=== PATIENT | male | born 1975 | race Caucasian/White ===

== ENCOUNTER 2016-07-21 07:38 | Emergency (ER) | payer OTHER ==
[~2016-07-21] VITALS: Ht 172.7 cm; Wt 69.0 kg
[~2016-07-21 07:38] MED LIST: BACT800T5 PO; LORA-392 PO
[2016-07-21 07:42] VITALS: BP 126/90; PULSE 102; RESP 18; TEMP 97.5; O2SAT 100
[2016-07-21 07:57] VITALS: RESP 16
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
--- NOTE | 2016-07-21 08:34 | RADHPO ---
EXAM DATE/TIME: 07/21/2016 08:05 [facility] COMPARISON: No previous studies available for comparison. INDICATIONS : Low back pain; fall today. MEDICAL HISTORY : None. SURGICAL HISTORY : None. ENCOUNTER: Initial ACUITY: 1 day PAIN SCORE: 8/10 LOCATION: Lumbar spine. FINDINGS: There are five non-rib bearing vertebral bodies. The vertebral bodies are in normal alignment withou t evidence of subluxation or scoliosis. The disc spaces are maintained. Minimal degenerative change s and scoliosis of the lumbar spine are noted. The posterior elements are intact without evidence of spondylolysis. The pedicles are intact. Bony mineralization is normal. No fracture is identified. CONCLUSION: No acute disease. Minimal degenerative changes and scoliosis of the lumbar spine. Alfonso Martini MD on July 21, 2016 at 8:31 Board Certified Radiologist. This report was verified electronically.
--- NOTE | 2016-07-21 08:36 | RADHPO ---
EXAM DATE/TIME: 07/21/2016 08:06 [facility] COMPARISON: KNEE LEFT COMPLETE (4VWS), February 25, 2016, 1:52. INDICATIONS : Left knee pain; fall today. MEDICAL HISTORY : None. SURGICAL HISTORY : None. ENCOUNTER: Initial ACUITY: 1 day PAIN SCORE: 5/10 LOCATION: Left medial knee. FINDINGS: Four view examination of the left knee demonstrates no evidence of fracture or dislocation. Bony min eralization is normal. The articular surfaces are intact. The suprapatellar soft tissues have a nor mal configuration. CONCLUSION: No acute disease. Alfonso Martini MD on July 21, 2016 at 8:34 Board Certified Radiologist. This report was verified electronically.
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
[2016-07-21] MEDS ORDERED: TYLE325T PO (09:04)
[2016-07-21] MEDS ORDERED: ZOFR4TAB3 SL (09:04)
== END 2016-07-21 09:12 | disposition home or self-care (01) ==
LOC: PHED 07:38
DX: S06.0X1A Concussion with loss of consciousness of 30 minutes or less, initial encounter (principal); F10.10 Alcohol abuse, uncomplicated; F17.210 Nicotine dependence, cigarettes, uncomplicated; F12.10 Cannabis abuse, uncomplicated; Y04.8XXA Assault by other bodily force, initial encounter; Y93.9 Activity, unspecified; Y92.9 Unspecified place or not applicable; Y99.9 Unspecified external cause status; Y90.9 Presence of alcohol in blood, level not specified
CPT/HCPCS: 70450; 72110; 73564

== ENCOUNTER 2016-07-23 16:14 | Emergency (ER) | payer SELFPAY ==
[2016-07-23] VITALS (7 sets, daily range): BP systolic 119–155; BP diastolic 71–95; PULSE 89–139; RESP 17–18; TEMP 98.5; O2SAT 95–99
[~2016-07-23] VITALS: Ht 172.7 cm; Wt 68.0 kg
[~2016-07-23 16:14] MED LIST changes: -BACT800T5 PO; -LORA-392 PO; +TYLE325T PO; +ZOFR4TAB3 SL
[2016-07-23] MEDS ORDERED: SODIUM CHLOR 0.9% 1000 ML INJ 1,000 ML IV SCH (16:32)
--- NOTE | 2016-07-23 16:36 | PD ---
HPI Chief Complaint: Alcohol/Drug Intoxication Time Seen by Provider: 16:30 Travel History International Travel<30 days: No Contact w/Intl Traveler<30days: No Traveled to known affect area: No History of Present Illness HPI 40-year-old male with history of alcoholism, here for evaluation of possible alcohol withdrawal in requesting detox. Patient drinks alcohol daily drinking vanilla extract, mouthwash, and vodka. He states his last treatment was between 8 and 9 PM last night. States that he is feeling lightheaded and shaky. He is afraid of going into DTs. He denies suicidal ideation and states that he is here because he wants to live. He knows that he needs to go to [facility] for detox, however he does not have the means to get there. He denies illicit drug use. PFSH Past Medical History Hx Anticoagulant Therapy: No Autoimmune Disease: No Anxiety: Yes Depression: Yes (DX IN 2009) Heart Rhythm Problems: Yes Cancer: No Cardiovascular Problems: No Chemotherapy: No Chest Pain: Yes (WHEN DETOXING) Cerebrovascular Accident: No Diabetes: No Diminished Hearing: No Endocrine: No Gastrointestinal Disorders: Yes GERD: Yes Genitourinary: No Hiatal Hernia: Yes Hypertension: Yes (DETOXING ONLY) Immune Disorder: No Implanted Vascular Access Dvce: No Musculoskeletal: No Neurologic: Yes Psychiatric: Yes Reproductive: No Respiratory: No Immunizations Current: Yes Radiation Therapy: No Seizures: Yes (WITHDRAWL) Ulcer: Yes (GASTRIC) Past Surgical History Tonsillectomy: Yes Other Surgery: Yes (Hernia as child) Social History Alcohol Use: Yes (daily- vodka 1 pint every other day) Tobacco Use: Yes (1/2 PPD) Substance Use: Yes (MARIJUANA) Allergies-Medications (Allergen,Severity, Reaction): Coded Allergies: No Known Allergies (Unverified , 07/23/16) Reported Meds & Prescriptions Reported Meds & Active Scripts Active No Active Prescriptions or Reported Medications Review of Systems Except as stated in HPI: all other systems reviewed are Neg Physical Exam Narrative GENERAL: Well-developed, well-nourished, tearful, awake, alert, no acute distress. SKIN: Focused skin assessment warm/dry. HEAD: Atraumatic. Normocephalic. EYES: Pupils equal and round. No scleral icterus. No injection or drainage. ENT: Mucous membranes pink and moist. No tongue fasciculations. NECK: Trachea midline. No JVD. CARDIOVASCULAR: Tachycardic, regular. RESPIRATORY: No accessory muscle use. Clear to auscultation. Breath sounds equal bilaterally. GASTROINTESTINAL: Abdomen soft, non-tender, nondistended. MUSCULOSKELETAL: No obvious deformities. No clubbing. No cyanosis. No edema. NEUROLOGICAL: Awake and alert. No obvious cranial nerve deficits. Motor grossly within normal limits. Normal speech. PSYCHIATRIC: Appropriate mood and affect; insight and judgment normal. Data Data Last Documented VS Vital Signs Date Time Temp Pulse Resp B/P Pulse Ox O2 Delivery O2 Flow Rate FiO2 07/23/16 21:24 108 18 135/77 96 Room Air 07/23/16 16:16 98.5 Orders Complete Blood Count With Diff (07/23/16 16:32) Comprehensive Metabolic Panel (07/23/16 16:32) Iv Access Insert/Monitor (07/23/16 16:32) Ecg Monitoring (07/23/16 16:32) Oximetry (07/23/16 16:32) Sodium Chlor 0.9% 1000 Ml Inj (Ns 1000 M (07/23/16 16:32) Sodium Chloride 0.9% Flush (Ns Flush) (07/23/16 16:45) Alcohol (Ethanol) (07/23/16 16:32) Chlordiazepoxide (Librium) (07/23/16 16:45) Sodium Chlor 0.9% 1000 Ml Inj (Ns 1000 M (07/23/16 17:45) Labs Laboratory Tests Test 07/23/16 16:41 White Blood Count 6.1 TH/MM3 Red Blood Count 4.81 MIL/MM3 Hemoglobin 15.3 GM/DL Hematocrit 45.0 % Mean Corpuscular Volume 93.7 FL Mean Corpuscular Hemoglobin 31.8 PG Mean Corpuscular Hemoglobin 34.0 % Concent Red Cell Distribution Width 14.7 % Platelet Count 187 TH/MM3 Mean Platelet Volume 7.8 FL Neutrophils (%) (Auto) 70.8 % Lymphocytes (%) (Auto) 21.9 % Monocytes (%) (Auto) 5.9 % Eosinophils (%) (Auto) 0.5 % Basophils (%) (Auto) 0.9 % Neutrophils # (Auto) 4.3 TH/MM3 Lymphocytes # (Auto) 1.3 TH/MM3 Monocytes # (Auto) 0.4 TH/MM3 Eosinophils # (Auto) 0.0 TH/MM3 Basophils # (Auto) 0.1 TH/MM3 CBC Comment DIFF FINAL Differential Comment Sodium Level 140 MEQ/L Potassium Level 3.5 MEQ/L Chloride Level 100 MEQ/L Carbon Dioxide Level 24.4 MEQ/L Anion Gap 16 MEQ/L Blood Urea Nitrogen 10 MG/DL Creatinine 1.00 MG/DL Estimat Glomerular Filtration 83 ML/MIN Rate Random Glucose 182 MG/DL Calcium Level 8.7 MG/DL Total Bilirubin 0.4 MG/DL Aspartate Amino Transf 204 U/L (AST/SGOT) Alanine Aminotransferase 141 U/L (ALT/SGPT) Alkaline Phosphatase 153 U/L Total Protein 7.3 GM/DL Albumin 3.7 GM/DL Ethyl Alcohol Level 340 MG/DL [facility] Medical Decision Making Medical Screen Exam Complete: Yes Emergency Medical Condition: Yes Medical Record Reviewed: Yes Differential Diagnosis Alcohol intoxication versus alcohol withdrawal Narrative Course Initial vital signs show heart rate of 139 which improved to less than 100 after 2 L of normal saline IV. Blood pressure is 143/95, pulse ox 99% on room air, oral temp of 98.5F. CBC is unremarkable. CMP is remarkable for AST 24, ALT 141, alkaline phosphatase 153 which is all likely secondary to alcoholism. Otherwise CMP is unremarkable. Alcohol level is 340. Patient was made aware of all findings. He is resting comfortably. He now tells me that his last drink was this morning, not last night. There are no beds available currently at [facility] to transfer him to. Clinically he is not displaying any signs of alcohol withdrawal. There is no tremulousness. No tongue fasciculations. He is slightly tachycardic, however this improved after receiving normal saline IV. He will be allowed to sleep off his intoxication in the emergency department. Diagnosis Primary Impression: Alcohol intoxication Qualified Code: F10.120 - Alcohol intoxication, uncomplicated Referrals: [facility] 1 day Scripts No Active Prescriptions or Reported Meds Disposition: 01 DISCHARGE HOME Condition: Stable Eliel Zuniga MD Jul 23, 2016 16:36
[2016-07-23] MEDS ORDERED: SODIUM CHLORIDE 0.9% FLUSH 10 ML FLUSH IV FLUSH PRN (16:45)
[2016-07-23 16:53] LABS: AUTOMATED NEUTROPHIL # 4.3 TH/MM3 (1.8-7.7); BASOPHIL # 0.1 TH/MM3 (0-0.2); BASOPHIL % 0.9 % (0.0-2.0); EOSINOPHIL % 0.5 % (0.0-4.0); HEMO FLAGS DIFF FINAL; LYMPH % 21.9 % (9.0-44.0); LYMPHOCYTE # 1.3 TH/MM3 (1.0-4.8); MEAN CELL VOLUME 93.7 FL (80.0-100.0); MEAN CORPUSCULAR HEMOGLOBIN 31.8 PG (27.0-34.0); MONO % 5.9 % (0.0-8.0); NEUT % 70.8 % (16.0-70.0); PLATELET COUNT 187 TH/MM3 (150-450); RED BLOOD COUNT 4.81 MIL/MM3 (4.50-5.90); RED CELL DISTRIBUTION WIDTH 14.7 % (11.6-17.2); WHITE BLOOD COUNT 6.1 TH/MM3 (4.0-11.0)
[2016-07-23 17:05] LABS: CHLORIDE 100 MEQ/L (98-107); POTASSIUM 3.5 MEQ/L (3.5-5.1); SODIUM (NA) 140 MEQ/L (136-145)
[2016-07-23 17:09] LABS: ANION GAP 16 MEQ/L (5-15); BICARBONATE 24.4 MEQ/L (21.0-32.0); BLOOD UREA NITROGEN 10 MG/DL (7-18)
[2016-07-23 17:12] LABS: ALT (GPT) 141 U/L (12-78); AST (GOT) 204 U/L (15-37); GLOMERULAR FILTRATION RATE 83 ML/MIN (>89)
[2016-07-23 17:13] LABS: TOTAL BILIRUBIN ADULT 0.4 MG/DL (0.2-1.0)
[2016-07-23 17:15] LABS: ALKALINE PHOSPHATASE 153 U/L (45-117)
[2016-07-23] MEDS ORDERED: SODIUM CHLOR 0.9% 1000 ML INJ 1,000 ML IV ONE (17:45)
[2016-07-24 01:10] VITALS: BP 124/73; PULSE 82; RESP 18; O2SAT 98
[2016-07-24 02:09] VITALS: BP 127/77; PULSE 91; RESP 18; O2SAT 96
[2016-07-24 03:13] VITALS: BP 119/70; PULSE 82; RESP 18; O2SAT 96
[2016-07-24 04:31] VITALS: BP 130/78; PULSE 73; RESP 18; O2SAT 95
[2016-07-24 05:28] VITALS: BP 141/74; PULSE 90; RESP 18; O2SAT 95
== END 2016-07-24 05:42 | disposition home or self-care (01) ==
LOC: PHED 16:14
DX: F10.120 Alcohol abuse with intoxication, uncomplicated (principal); R00.0 Tachycardia, unspecified; I10 Essential (primary) hypertension; F17.200 Nicotine dependence, unspecified, uncomplicated; Z86.59 Personal history of other mental and behavioral disorders; Z86.79 Personal history of other diseases of the circulatory system; Z87.19 Personal history of other diseases of the digestive system; Z86.69 Personal history of other diseases of the nervous system and sense organs
CPT/HCPCS: 80053; 80307; 85025; 96360; 96361; 99285; J7030

== ENCOUNTER 2016-12-07 15:49 | Emergency (ER) | payer SELFPAY ==
[~2016-12-07] VITALS: Ht 172.7 cm; Wt 67.2 kg
[2016-12-07 15:53] VITALS: BP 142/89; PULSE 111; RESP 16; TEMP 98.6; O2SAT 94
[2016-12-07] MEDS ORDERED: SODIUM CHLOR 0.9% 1000 ML INJ 1,000 ML IV ONE ×2 (16:30)
[2016-12-07] MEDS ORDERED: ONDANSETRON HCL 4 MG/2 ML VIAL IV PUSH ONE (16:30)
[2016-12-07] MEDS ORDERED: chlordiazePOXIDE 25 MG CAP PO PRN (16:30)
[2016-12-07 17:08] LABS: AUTOMATED NEUTROPHIL # 2.1 TH/MM3 (1.8-7.7); BASOPHIL # 0.1 TH/MM3 (0-0.2); BASOPHIL % 1.9 % (0.0-2.0); CHLORIDE 104 MEQ/L (98-107); EOSINOPHIL # 0.2 TH/MM3 (0-0.4); EOSINOPHIL % 3.4 % (0.0-4.0); HEMATOCRIT 44.3 % (39.0-51.0); HEMO FLAGS DIFF FINAL; LYMPH % 51.7 % (9.0-44.0); LYMPHOCYTE # 3.2 TH/MM3 (1.0-4.8); MEAN CELL VOLUME 95.2 FL (80.0-100.0); MEAN CORPUSCULAR HEMOGLOBIN 31.9 PG (27.0-34.0); MEAN CORPUSCULAR HGB CONC 33.5 % (32.0-36.0); MONO % 7.4 % (0.0-8.0); NEUT % 35.6 % (16.0-70.0); PLATELET COUNT 259 TH/MM3 (150-450); POTASSIUM 3.5 MEQ/L (3.5-5.1); RED BLOOD COUNT 4.65 MIL/MM3 (4.50-5.90); SODIUM (NA) 140 MEQ/L (136-145)
[2016-12-07 17:12] LABS: ANION GAP 10 MEQ/L (5-15); BICARBONATE 25.8 MEQ/L (21.0-32.0)
[2016-12-07 17:13] LABS: BLOOD UREA NITROGEN 6 MG/DL (7-18)
[2016-12-07 17:15] LABS: ALT (GPT) 41 U/L (12-78); AST (GOT) 38 U/L (15-37); GLOMERULAR FILTRATION RATE 110 ML/MIN (>89)
[2016-12-07 17:17] LABS: TOTAL BILIRUBIN ADULT 0.7 MG/DL (0.2-1.0)
[2016-12-07 17:18] LABS: ALKALINE PHOSPHATASE 92 U/L (45-117)
[2016-12-07 17:22] LABS: ALCOHOL 331 MG/DL (0-5)
[2016-12-07 18:08] VITALS: BP 105/59; PULSE 96; RESP 16; O2SAT 98
--- NOTE | 2016-12-07 18:12 | PD ---
HPI Chief Complaint: Alcohol/Drug Intoxication Time Seen by Provider: 16:14 Travel History International Travel<30 days: No Contact w/Intl Traveler<30days: No Traveled to known affect area: No History of Present Illness HPI This 41-year-old male says he has been vomiting and has been unable to hold anything down for a day. He has been a heavy drinker in the past. He said he stopped drinking for several months and then last Thursday started drinking again. His last alcoholic beverage he says was last night at around 11:00 at night. He is having some epigastric discomfort. He has had persistent vomiting. He feels like he is going into DTs. PFSH Past Medical History Hx Anticoagulant Therapy: No Autoimmune Disease: No Anxiety: Yes Depression: Yes (DX IN 2009) Heart Rhythm Problems: Yes Cancer: No Cardiovascular Problems: No Chemotherapy: No Chest Pain: Yes (WHEN DETOXING) Cerebrovascular Accident: No Diabetes: No Diminished Hearing: No Endocrine: No Gastrointestinal Disorders: Yes GERD: Yes Genitourinary: No Hiatal Hernia: Yes Hypertension: Yes (DETOXING ONLY) Immune Disorder: No Implanted Vascular Access Dvce: No Musculoskeletal: No Neurologic: Yes Psychiatric: Yes Reproductive: No Respiratory: No Immunizations Current: Yes Radiation Therapy: No Seizures: Yes (WITHDRAWL) Ulcer: Yes (GASTRIC) Tetanus Vaccination: < 5 Years Influenza Vaccination: Yes Past Surgical History Tonsillectomy: Yes Other Surgery: Yes (Hernia as child) Social History Alcohol Use: Yes (daily- vodka 1 pint every other day) Tobacco Use: Yes (1/2 PPD) Substance Use: Yes (MARIJUANA) Allergies-Medications (Allergen,Severity, Reaction): Coded Allergies: No Known Allergies (Unverified , 12/07/16) Reported Meds & Prescriptions Reported Meds & Active Scripts Active No Active Prescriptions or Reported Medications Review of Systems General / Constitutional: No: Fever, Chills Eyes: No: Diploplia, Blurred Vision HENT: No: Headaches Cardiovascular: No: Chest Pain or Discomfort, Palpitations Respiratory: No: Shortness of Breath Gastrointestinal: Positive: Nausea, Vomiting Genitourinary: No: Urgency, Frequency Skin: No Rash Neurologic: Positive: Tremor, No: Weakness Physical Exam Narrative GENERAL well-developed male. Mildly tremulous SKIN: Focused skin assessment warm/dry. HEAD: Atraumatic. Normocephalic. EYES: Pupils equal and round. No scleral icterus. No injection or drainage. ENT: No nasal bleeding or discharge. Mucous membranes pink and moist. NECK: Trachea midline. No JVD. CARDIOVASCULAR: Regular rate and rhythm. No murmur appreciated. RESPIRATORY: No accessory muscle use. Clear to auscultation. Breath sounds equal bilaterally. GASTROINTESTINAL: Abdomen soft, non-tender, nondistended. Hepatic and splenic margins not palpable. MUSCULOSKELETAL: No obvious deformities. No clubbing. No cyanosis. No edema. NEUROLOGICAL: Awake and alert. No obvious cranial nerve deficits. Motor grossly within normal limits. Normal speech. PSYCHIATRIC: Appropriate mood and affect; insight and judgment normal. Data Data Last Documented VS Vital Signs Date Time Temp Pulse Resp B/P (MAP) Pulse Ox O2 Delivery O2 Flow Rate FiO2 12/07/16 15:53 98.6 111 16 142/89 (106) 94 Orders Orders Complete Blood Count With Diff (12/07/16 16:21) Comprehensive Metabolic Panel (12/07/16 16:21) Lipase (12/07/16 16:21) Alcohol (Ethanol) (12/07/16 16:21) Sodium Chlor 0.9% 1000 Ml Inj (Ns 1000 M (12/07/16 16:30) Sodium Chlor 0.9% 1000 Ml Inj (Ns 1000 M (12/07/16 16:30) Ondansetron Inj (Zofran Inj) (12/07/16 16:30) Chlordiazepoxide (Librium) (12/07/16 16:30) Labs Laboratory Tests Test 12/07/16 16:30 White Blood Count 6.0 TH/MM3 Red Blood Count 4.65 MIL/MM3 Hemoglobin 14.8 GM/DL Hematocrit 44.3 % Mean Corpuscular Volume 95.2 FL Mean Corpuscular Hemoglobin 31.9 PG Mean Corpuscular Hemoglobin Concent 33.5 % Red Cell Distribution Width 15.0 % Platelet Count 259 TH/MM3 Mean Platelet Volume 8.4 FL Neutrophils (%) (Auto) 35.6 % Lymphocytes (%) (Auto) 51.7 % Monocytes (%) (Auto) 7.4 % Eosinophils (%) (Auto) 3.4 % Basophils (%) (Auto) 1.9 % Neutrophils # (Auto) 2.1 TH/MM3 Lymphocytes # (Auto) 3.2 TH/MM3 Monocytes # (Auto) 0.4 TH/MM3 Eosinophils # (Auto) 0.2 TH/MM3 Basophils # (Auto) 0.1 TH/MM3 CBC Comment DIFF FINAL Differential Comment Blood Urea Nitrogen 6 MG/DL Creatinine 0.78 MG/DL Random Glucose 86 MG/DL Total Protein 7.5 GM/DL Albumin 3.9 GM/DL Calcium Level 8.5 MG/DL Alkaline Phosphatase 92 U/L Aspartate Amino Transf (AST/SGOT) 38 U/L Alanine Aminotransferase (ALT/SGPT) 41 U/L Total Bilirubin 0.7 MG/DL Sodium Level 140 MEQ/L Potassium Level 3.5 MEQ/L Chloride Level 104 MEQ/L Carbon Dioxide Level 25.8 MEQ/L Anion Gap 10 MEQ/L Estimat Glomerular Filtration Rate 110 ML/MIN Lipase 174 U/L Ethyl Alcohol Level 331 MG/DL [facility] Medical Decision Making Medical Screen Exam Complete: Yes Emergency Medical Condition: Yes Medical Record Reviewed: Yes Differential Diagnosis Differential includes alcoholic gastritis, pancreatitis, alcohol intoxication, alcohol withdrawal Narrative Course Hemoglobin is 14.8 with a white count of 6000. His comprehensive metabolic profile is fairly normal. Blood alcohol is 331. He will be observed and then released. It seems unlikely he's been vomiting everything for the whole day Diagnosis Primary Impression: Acute alcohol intoxication Qualified Codes: F10.929 - Alcohol use, unspecified with intoxication, unspecified Scripts No Active Prescriptions or Reported Meds Disposition: 01 DISCHARGE HOME Condition: Stable Pa Holbrook MD Dec 07, 2016 18:11
== END 2016-12-07 18:31 | disposition home or self-care (01) ==
LOC: PHED 15:49
DX: F10.129 Alcohol abuse with intoxication, unspecified (principal); I10 Essential (primary) hypertension; K44.9 Diaphragmatic hernia without obstruction or gangrene
CPT/HCPCS: 80053; 80307; 83690; 85025; 96361; 96374; 99284; J2405; J7030

== ENCOUNTER 2016-12-14 16:24 | Emergency (ER) | payer SELFPAY ==
[~2016-12-14] VITALS: Ht 172.7 cm; Wt 71.2 kg
[2016-12-14 16:36] VITALS: BP 131/86; PULSE 88; RESP 16; TEMP 98; O2SAT 99
[2016-12-14] MEDS ORDERED: SODIUM CHLOR 0.9% 1000 ML INJ 1,000 ML IV SCH (16:50)
--- NOTE | 2016-12-14 16:55 | PD ---
HPI Chief Complaint: Headache Time Seen by Provider: 16:47 Travel History International Travel<30 days: No Contact w/Intl Traveler<30days: No Traveled to known affect area: No History of Present Illness HPI 41-year-old male with history of alcohol abuse who states he is in recovery, however his last drink was yesterday stating that he had 2 beers, here for evaluation of headache and left lower quadrant abdominal pain. Patient reports sudden onset headache about 2 hours ago described as splitting pain in the front of his head. He also reports intermittent left lower quadrant abdominal pain described as sharp. No history of abdominal surgeries. No vomiting or diarrhea. Patient also voices concern is because he is prescribed Ativan, however has been out of this medication for the last 10 days. PFSH Past Medical History Hx Anticoagulant Therapy: No Autoimmune Disease: No Anxiety: Yes Depression: Yes (DX IN 2009) Heart Rhythm Problems: Yes Cancer: No Cardiovascular Problems: No Chemotherapy: No Chest Pain: Yes (WHEN DETOXING) Cerebrovascular Accident: No Diabetes: No Diminished Hearing: No Endocrine: No Gastrointestinal Disorders: Yes GERD: Yes Genitourinary: No Hiatal Hernia: Yes Hypertension: Yes (DETOXING ONLY) Immune Disorder: No Implanted Vascular Access Dvce: No Musculoskeletal: No Neurologic: Yes Psychiatric: Yes Reproductive: No Respiratory: No Immunizations Current: Yes Radiation Therapy: No Seizures: Yes (WITHDRAWL) Ulcer: Yes (GASTRIC) ?: Not Past Surgical History Tonsillectomy: Yes Other Surgery: Yes (Hernia as child) Social History Alcohol Use: Yes (daily- vodka 1 pint every other day) Tobacco Use: Yes (1/2 PPD) Substance Use: Yes (MARIJUANA) Allergies-Medications (Allergen,Severity, Reaction): Coded Allergies: No Known Allergies (Unverified , 12/07/16) Reported Meds & Prescriptions Reported Meds & Active Scripts Active No Active Prescriptions or Reported Medications Review of Systems Except as stated in HPI: all other systems reviewed are Neg Physical Exam Narrative GENERAL: Well-developed, well-nourished, comfortable, no apparent distress. SKIN: Focused skin assessment warm/dry. HEAD: Atraumatic. Normocephalic. EYES: Pupils equal and round. No scleral icterus. No injection or drainage. ENT: No nasal bleeding or discharge. Mucous membranes pink and moist. NECK: Trachea midline. No JVD. No nuchal rigidity. CARDIOVASCULAR: Regular rate and rhythm. No murmur appreciated. RESPIRATORY: No accessory muscle use. Clear to auscultation. Breath sounds equal bilaterally. GASTROINTESTINAL: Abdomen soft, nondistended. Mild left lower quadrant tenderness without peritoneal signs. Normal bowel sounds. MUSCULOSKELETAL: No obvious deformities. No clubbing. No cyanosis. No edema. NEUROLOGICAL: Awake and alert. No obvious cranial nerve deficits. Motor grossly within normal limits. Normal speech. PSYCHIATRIC: Appropriate mood and affect; insight and judgment normal. Data Data Last Documented VS Vital Signs Date Time Temp Pulse Resp B/P (MAP) Pulse Ox O2 Delivery O2 Flow Rate FiO2 12/14/16 17:28 75 18 140/85 (103) 97 Room Air 12/14/16 16:36 98.0 Orders Orders Complete Blood Count With Diff (12/14/16 16:50) Comprehensive Metabolic Panel (12/14/16 16:50) Lipase (12/14/16 16:50) Prothrombin Time / Inr (Pt) (12/14/16 16:50) Act Partial Throm Time (Ptt) (12/14/16 16:50) Urinalysis - C+S If Indicated (12/14/16 16:50) Ct Abd/Pel W Iv Contrast(Rout) (12/14/16 16:50) Iv Access Insert/Monitor (12/14/16 16:50) Ecg Monitoring (12/14/16 16:50) Oximetry (12/14/16 16:50) Sodium Chlor 0.9% 1000 Ml Inj (Ns 1000 M (12/14/16 16:50) Sodium Chloride 0.9% Flush (Ns Flush) (12/14/16 17:00) Ct Brain W/O Iv Contrast(Rout) (12/14/16 ) Alcohol (Ethanol) (12/14/16 16:50) Lorazepam Inj (Ativan Inj) (12/14/16 17:00) Iohexol 350 Inj (Omnipaque 350 Inj) (12/14/16 17:45) Ketorolac Inj (Toradol Inj) (12/14/16 18:45) Labs Laboratory Tests Test 12/14/16 17:15 White Blood Count 8.6 TH/MM3 Red Blood Count 4.49 MIL/MM3 Hemoglobin 14.1 GM/DL Hematocrit 43.5 % Mean Corpuscular Volume 96.9 FL Mean Corpuscular Hemoglobin 31.5 PG Mean Corpuscular Hemoglobin Concent 32.5 % Red Cell Distribution Width 16.0 % Platelet Count 145 TH/MM3 Mean Platelet Volume 8.3 FL Neutrophils (%) (Auto) 68.9 % Lymphocytes (%) (Auto) 18.8 % Monocytes (%) (Auto) 7.1 % Eosinophils (%) (Auto) 2.6 % Basophils (%) (Auto) 2.6 % Neutrophils # (Auto) 6.0 TH/MM3 Lymphocytes # (Auto) 1.6 TH/MM3 Monocytes # (Auto) 0.6 TH/MM3 Eosinophils # (Auto) 0.2 TH/MM3 Basophils # (Auto) 0.2 TH/MM3 CBC Comment DIFF FINAL Differential Comment Prothrombin Time 10.1 SEC Prothromb Time International Ratio 0.9 RATIO Activated Partial Thromboplast Time 26.2 SEC Blood Urea Nitrogen 18 MG/DL Creatinine 0.89 MG/DL Random Glucose 105 MG/DL Total Protein 6.9 GM/DL Albumin 3.4 GM/DL Calcium Level 8.6 MG/DL Alkaline Phosphatase 99 U/L Aspartate Amino Transf (AST/SGOT) 58 U/L Alanine Aminotransferase (ALT/SGPT) 89 U/L Total Bilirubin 0.2 MG/DL Sodium Level 138 MEQ/L Potassium Level 4.0 MEQ/L Chloride Level 103 MEQ/L Carbon Dioxide Level 28.0 MEQ/L Anion Gap 7 MEQ/L Estimat Glomerular Filtration Rate 95 ML/MIN Lipase 292 U/L Ethyl Alcohol Level LESS THAN 3 MG/DL MDM Medical Decision Making Medical Screen Exam Complete: Yes Emergency Medical Condition: Yes Differential Diagnosis Tension headache, cluster headache, migraine headache, SAH/meningitis/ encephalitis less likely, colitis, diverticulitis, pancreatitis Narrative Course Vital signs show heart rate 80, blood pressure 131/86, pulse ox 99% on room air , oral temp of 98F. CBC is unremarkable. CMP is remarkable for AST 58, ALT 89, otherwise unremarkable. Lipase is 292. Alcohol level is negative. CT abdomen pelvis: No acute findings in the abdomen or pelvis. CT head: No acute disease. The patient was given IV fluids and a dose of IV Ativan. On reassessment he is sleeping comfortably. He is still complaining of a slight headache. He will be given a dose of Toradol. I do not believe he has an SAH/meningitis/ encephalitis exam. His head CT was also performed within 4 hours of onset of headache. He has made aware of all findings. He is not displaying any signs or symptoms of alcohol withdrawal. He is stable for discharge home with outpatient follow-up with a primary care physician this week. He was informed on when to return to the emergency department. He verbalizes understanding and agreement with plan. Diagnosis Primary Impression: Headache Qualified Codes: R51 - Headache Additional Impression: Abdominal pain Qualified Codes: R10.32 - Left lower quadrant pain Referrals: Primary Care Physician 3 days Additional Instructions: Follow-up with a primary care physician this week. Return to the emergency department for worsening symptoms or any other concerns. Scripts No Active Prescriptions or Reported Meds Disposition: 01 DISCHARGE HOME Condition: Stable Eliel Zuniga MD Dec 14, 2016 16:55
[2016-12-14] MEDS ORDERED: LORazepam 2 MG/ML VIAL IV PUSH ONE (17:00)
[2016-12-14] MEDS ORDERED: SODIUM CHLORIDE 0.9% FLUSH 10 ML FLUSH IV FLUSH PRN (17:00)
[2016-12-14 17:25] LABS: BASOPHIL # 0.2 TH/MM3 (0-0.2); BASOPHIL % 2.6 % (0.0-2.0); EOSINOPHIL # 0.2 TH/MM3 (0-0.4); EOSINOPHIL % 2.6 % (0.0-4.0); HEMATOCRIT 43.5 % (39.0-51.0); HEMO FLAGS DIFF FINAL; LYMPH % 18.8 % (9.0-44.0); LYMPHOCYTE # 1.6 TH/MM3 (1.0-4.8); MEAN CELL VOLUME 96.9 FL (80.0-100.0); MEAN CORPUSCULAR HEMOGLOBIN 31.5 PG (27.0-34.0); MEAN CORPUSCULAR HGB CONC 32.5 % (32.0-36.0); MONO % 7.1 % (0.0-8.0); NEUT % 68.9 % (16.0-70.0); PLATELET COUNT 145 TH/MM3 (150-450); RED BLOOD COUNT 4.49 MIL/MM3 (4.50-5.90); WHITE BLOOD COUNT 8.6 TH/MM3 (4.0-11.0)
[2016-12-14 17:27] VITALS: O2SAT 98
[2016-12-14 17:28] VITALS: BP 140/85; PULSE 75; RESP 18; O2SAT 97
[2016-12-14 17:33] LABS: CHLORIDE 103 MEQ/L (98-107); SODIUM (NA) 138 MEQ/L (136-145)
[2016-12-14 17:36] LABS: ANION GAP 7 MEQ/L (5-15); BLOOD UREA NITROGEN 18 MG/DL (7-18)
[2016-12-14 17:38] LABS: APTT (PATIENT) 26.2 SEC (24.3-30.1); INTERNATIONAL NORMALIZED RATIO 0.9 RATIO; PROTHROMBIN TIME - PATIENT 10.1 SEC (9.8-11.6)
[2016-12-14 17:39] LABS: ALT (GPT) 89 U/L (12-78); AST (GOT) 58 U/L (15-37); GLOMERULAR FILTRATION RATE 95 ML/MIN (>89)
[2016-12-14 17:41] LABS: TOTAL BILIRUBIN ADULT 0.2 MG/DL (0.2-1.0)
[2016-12-14 17:42] LABS: ALKALINE PHOSPHATASE 99 U/L (45-117)
[2016-12-14] MEDS ORDERED: IOHEXOL 350 MG/ML 10 ML VIAL (for RAD DIAG) IVCONTRAST ONE (17:45)
--- NOTE | 2016-12-14 17:54 | RADRPT ---
EXAM DATE/TIME: 12/14/2016 17:41 [facility] COMPARISON: CT BRAIN W/O CONTRAST, July 21, 2016, 8:20. INDICATIONS : Cephalgia. RADIATION DOSE: 62.94 CTDIvol (mGy) MEDICAL HISTORY : None SURGICAL HISTORY : None. ENCOUNTER: Initial ACUITY: 1 day PAIN SCALE: 8/10 LOCATION: cranial TECHNIQUE: Multiple contiguous axial images were obtained of the head. Using automated exposure control and adj ustment of the mA and/or kV according to patient size, radiation dose was kept as low as reasonably a chievable to obtain optimal diagnostic quality images. DICOM format image data is available electro nically for review and comparison. FINDINGS: CEREBRUM: The ventricles are normal for age. No evidence of midline shift, mass lesion, hemorrhage or acute in farction. No extra-axial fluid collections are seen. POSTERIOR FOSSA: The cerebellum and brainstem are intact. The 4th ventricle is midline. The cerebellopontine angle i s unremarkable. EXTRACRANIAL: The visualized portion of the orbits is intact. SKULL: The calvaria is intact. No evidence of skull fracture. CONCLUSION: No acute disease. Matt Duval MD on December 14, 2016 at 17:52 Board Certified Radiologist. This report was verified electronically.
--- NOTE | 2016-12-14 18:02 | RADRPT ---
EXAM DATE/TIME: 12/14/2016 17:45 [facility] COMPARISON: No previous studies available for comparison. INDICATIONS : Left lower quadrant pain. IV CONTRAST: 95 cc Omnipaque 350 (iohexol) IV ORAL CONTRAST: No oral contrast ingested. RADIATION DOSE: 6.72 CTDIvol (mGy) MEDICAL HISTORY : None SURGICAL HISTORY : None. ENCOUNTER: Initial ACUITY: 1 day PAIN SCALE: 2/10 LOCATION: Left lower quadrant TECHNIQUE: Volumetric scanning of the abdomen and pelvis was performed. Using automated exposure control and ad justment of the mA and/or kV according to patient size, radiation dose was kept as low as reasonably achievable to obtain optimal diagnostic quality images. DICOM format image data is available electro nically for review and comparison. FINDINGS: LOWER LUNGS: The visualized lower lungs are clear. LIVER: Homogeneous density without lesion. There is no dilation of the biliary tree. No calcified gallston es. SPLEEN: Normal size without lesion. PANCREAS: Within normal limits. KIDNEYS: Normal in size and shape. There is no mass, stone or hydronephrosis. ADRENAL GLANDS: Within normal limits. VASCULAR: There is no aortic aneurysm. BOWEL/MESENTERY: The stomach, small bowel, and colon demonstrate no acute abnormality. There is no free intraperitone al air or fluid. ABDOMINAL WALL: Within normal limits. RETROPERITONEUM: There is no lymphadenopathy. BLADDER: No wall thickening or mass. REPRODUCTIVE: Within normal limits. INGUINAL: There is no lymphadenopathy or hernia. MUSCULOSKELETAL: Within normal limits for patient age. CONCLUSION: No acute CT findings in the abdomen or pelvis. No specific explanation for left lower quadrant pain Trevor Bueno MD on December 14, 2016 at 17:55 Board Certified Radiologist. This report was verified electronically.
[2016-12-14 18:21] LABS: ALCOHOL LESS THAN 3 MG/DL (0-5)
[2016-12-14] MEDS ORDERED: KETOROLAC TROMETHAMINE 30 MG/ML (IVP) VIAL IV PUSH ONE (18:45)
[2016-12-14 19:30] VITALS: BP 139/85; PULSE 80; RESP 16; O2SAT 97
[2016-12-14 20:29] VITALS: BP 138/85
[2016-12-14 20:31] VITALS: RESP 16
== END 2016-12-14 20:36 | disposition home or self-care (01) ==
LOC: PHED 16:24
DX: R51 Headache (principal); R10.32 Left lower quadrant pain; F17.200 Nicotine dependence, unspecified, uncomplicated
CPT/HCPCS: 70450; 74177; 80053; 80307; 83690; 85025; 85610; 85730; 96361; 96374; 96375; 99285; J1885; J2060; J7030; Q9967

== ENCOUNTER 2017-09-29 14:21 | Emergency (ER) | payer SELFPAY ==
[~2017-09-29] VITALS: Ht 175.3 cm; Wt 66.6 kg
[2017-09-29 14:30] VITALS: BP 129/67; PULSE 119; RESP 16; TEMP 98; O2SAT 96
[2017-09-29 15:27] VITALS: O2SAT 99
--- NOTE | 2017-09-29 15:29 | PD ---
HPI Chief Complaint: Dizziness Time Seen by Provider: 15:20 Travel History International Travel<30 days: No Contact w/Intl Traveler<30days: No Traveled to known affect area: No History of Present Illness HPI This patient complains of diffuse body pains everywhere. He has history of alcoholism but says he managed to quit for about a year. He unfortunately relapsed last night and drank an excessive amount of alcohol. Today he feels general malaise and weakness and diffuse body aching. Denies vomiting or diarrhea or fever or chest pain or headache. No syncope. He denies injury. He is frustrated with himself. No alleviating factors. He denies depression or suicidal thought. Symptom severity is moderate. No exacerbating factors. No history of IV drug abuse. PFSH Past Medical History Hx Anticoagulant Therapy: No Autoimmune Disease: No Anxiety: Yes Depression: Yes (DX IN 2009) Heart Rhythm Problems: Yes Cancer: No Cardiovascular Problems: No Chemotherapy: No Chest Pain: Yes (WHEN DETOXING) Cerebrovascular Accident: No Diabetes: No Diminished Hearing: No Endocrine: No Gastrointestinal Disorders: Yes GERD: Yes Genitourinary: No Hiatal Hernia: Yes Hypertension: Yes (DETOXING ONLY) Immune Disorder: No Implanted Vascular Access Dvce: No Musculoskeletal: No Neurologic: Yes Psychiatric: Yes Reproductive: No Respiratory: No Immunizations Current: Yes Radiation Therapy: No Seizures: Yes (WITHDRAWL) Ulcer: Yes (GASTRIC) Tetanus Vaccination: < 5 Years Influenza Vaccination: Yes Past Surgical History Tonsillectomy: Yes Other Surgery: Yes (Hernia as child) Social History Alcohol Use: Yes (1/2 [place] YESTERDAY) Tobacco Use: Yes (1/2 PPD) Substance Use: Yes (MARIJUANA OCC) Allergies-Medications (Allergen,Severity, Reaction): Coded Allergies: No Known Allergies (Unverified Adverse Reaction, Unknown, 09/29/17) Reported Meds & Prescriptions Reported Meds & Active Scripts Active No Active Prescriptions or Reported Medications Review of Systems General / Constitutional: No: Fever Eyes: No: Visual changes HENT: Positive: Lightheadedness, No: Headaches Cardiovascular: No: Chest Pain or Discomfort Respiratory: No: Shortness of Breath Gastrointestinal: No: Abdominal Pain Genitourinary: No: Dysuria Musculoskeletal: Positive: Weakness, No: Pain Skin: No Rash Neurologic: Positive: Weakness, Dizziness Psychiatric: Positive: Substance Abuse, No: Depression Endocrine: No: Polydipsia Hematologic/Lymphatic: No: Easy Bruising Physical Exam Narrative GENERAL: Well-nourished, well-developed patient in no apparent distress. SKIN: Focused skin assessment reveals no rash and nodules. Skin is Warm and dry. HEAD: Atraumatic. Normocephalic. EYES: Pupils equal and round. No scleral icterus. No injection or drainage. ENT: No nasal bleeding or discharge. Mucous membranes pink and moist. NECK: Trachea midline. No JVD. CARDIOVASCULAR: Regular rate and rhythm. No murmur appreciated. RESPIRATORY: No accessory muscle use. Clear to auscultation. Breath sounds equal bilaterally. GASTROINTESTINAL: Abdomen soft, non-tender, nondistended. Hepatic and splenic margins not palpable. MUSCULOSKELETAL: No obvious deformities. No clubbing. No cyanosis. No edema. NEUROLOGICAL: Awake and alert. No obvious cranial nerve deficits. Motor grossly within normal limits. Normal speech. PSYCHIATRIC: Appropriate mood and affect; insight and judgment poor . Data Data Last Documented VS Vital Signs Date Time Temp Pulse Resp B/P (MAP) Pulse Ox O2 Delivery O2 Flow Rate FiO2 09/29/17 19:10 09/29/17 18:38 76 16 96 Room Air 09/29/17 14:30 98.0 Orders Orders Complete Blood Count With Diff (09/29/17 15:23) Comprehensive Metabolic Panel (09/29/17 15:23) Ecg Monitoring (09/29/17 15:23) Iv Access Insert/Monitor (09/29/17 15:23) Oximetry (09/29/17 15:23) Sodium Chloride 0.9% Flush (Ns Flush) (09/29/17 15:30) Sodium Chlor 0.9% 1000 Ml Inj (Ns 1000 M (09/29/17 15:30) Alcohol (Ethanol) (09/29/17 15:30) Labs Laboratory Tests Test 09/29/17 15:30 White Blood Count 6.9 TH/MM3 Red Blood Count 5.29 MIL/MM3 Hemoglobin 16.2 GM/DL Hematocrit 47.5 % Mean Corpuscular Volume 89.9 FL Mean Corpuscular Hemoglobin 30.7 PG Mean Corpuscular Hemoglobin Concent 34.1 % Red Cell Distribution Width 13.9 % Platelet Count 233 TH/MM3 Mean Platelet Volume 8.3 FL Neutrophils (%) (Auto) 53.6 % Lymphocytes (%) (Auto) 40.7 % Monocytes (%) (Auto) 3.7 % Eosinophils (%) (Auto) 1.0 % Basophils (%) (Auto) 1.0 % Neutrophils # (Auto) 3.6 TH/MM3 Lymphocytes # (Auto) 2.8 TH/MM3 Monocytes # (Auto) 0.3 TH/MM3 Eosinophils # (Auto) 0.1 TH/MM3 Basophils # (Auto) 0.1 TH/MM3 CBC Comment DIFF FINAL Differential Comment Blood Urea Nitrogen 15 MG/DL Creatinine 0.87 MG/DL Random Glucose 96 MG/DL Total Protein 6.6 GM/DL Albumin 3.4 GM/DL Calcium Level 7.9 MG/DL Alkaline Phosphatase 113 U/L Aspartate Amino Transf (AST/SGOT) 24 U/L Alanine Aminotransferase (ALT/SGPT) 39 U/L Total Bilirubin 0.3 MG/DL Sodium Level 146 MEQ/L Potassium Level 4.6 MEQ/L Chloride Level 108 MEQ/L Carbon Dioxide Level 29.0 MEQ/L Anion Gap 9 MEQ/L Estimat Glomerular Filtration Rate 97 ML/MIN Ethyl Alcohol Level 331 MG/DL [place] Medical Decision Making Medical Screen Exam Complete: Yes Emergency Medical Condition: Yes Medical Record Reviewed: Yes Differential Diagnosis Alcohol intoxication, electrolyte abnormality, dehydration Narrative Course I have reviewed the patient's electronic medical record. Patient has been to the ER numerous times for alcoholism related issues IV placed and labs sent I gave him a liter of normal saline IV bolus Alcohol level is 331 Extended cardiac monitoring reveals sinus rhythm in the 90s without ectopy CBC and metabolic studies reasonably normal Patient was given several hours to sober up. However, he got up and took his IV out and left on his own according to the nurse. She asked him to wait but he would not and just left Diagnosis Primary Impression: Acute alcohol intoxication Qualified Codes: F10.929 - Alcohol use, unspecified with intoxication, unspecified Scripts No Active Prescriptions or Reported Meds Disposition: 07 AGAINST MEDICAL ADVICE Reyes Hairston MD Sep 29, 2017 15:29
[2017-09-29] MEDS ORDERED: SODIUM CHLOR 0.9% 1000 ML INJ 1,000 ML IV ONE (15:30)
[2017-09-29] MEDS ORDERED: SODIUM CHLORIDE 0.9% FLUSH 10 ML FLUSH IVF PRN (15:30)
[2017-09-29 15:46] LABS: AUTOMATED NEUTROPHIL # 3.6 TH/MM3 (1.8-7.7); BASOPHIL # 0.1 TH/MM3 (0-0.2); EOSINOPHIL # 0.1 TH/MM3 (0-0.4); HEMATOCRIT 47.5 % (39.0-51.0); HEMOGLOBIN 16.2 GM/DL (13.0-17.0); LYMPH % 40.7 % (9.0-44.0); LYMPHOCYTE # 2.8 TH/MM3 (1.0-4.8); MEAN CELL VOLUME 89.9 FL (80.0-100.0); MEAN CORPUSCULAR HEMOGLOBIN 30.7 PG (27.0-34.0); MEAN CORPUSCULAR HGB CONC 34.1 % (32.0-36.0); MEAN PLATELET VOLUME 8.3 FL (7.0-11.0); MONO % 3.7 % (0.0-8.0); MONOCYTE # 0.3 TH/MM3 (0-0.9); NEUT % 53.6 % (16.0-70.0); PLATELET COUNT 233 TH/MM3 (150-450); RED BLOOD COUNT 5.29 MIL/MM3 (4.50-5.90); RED CELL DISTRIBUTION WIDTH 13.9 % (11.6-17.2); WHITE BLOOD COUNT 6.9 TH/MM3 (4.0-11.0)
[2017-09-29 15:54] LABS: CHLORIDE 108 MEQ/L (98-107); SODIUM (NA) 146 MEQ/L (136-145)
[2017-09-29 15:57] LABS: CALCIUM 7.9 MG/DL (8.5-10.1)
[2017-09-29 15:58] LABS: ALBUMIN 3.4 GM/DL (3.4-5.0); BLOOD UREA NITROGEN 15 MG/DL (7-18); GLUCOSE,RANDOM 96 MG/DL (74-106)
[2017-09-29 16:01] LABS: ALT (GPT) 39 U/L (12-78); AST (GOT) 24 U/L (15-37); CREATININE 0.87 MG/DL (0.60-1.30); GLOMERULAR FILTRATION RATE 97 ML/MIN (>89)
[2017-09-29 16:03] LABS: TOTAL BILIRUBIN ADULT 0.3 MG/DL (0.2-1.0); TOTAL PROTEIN 6.6 GM/DL (6.4-8.2)
[2017-09-29 16:04] LABS: ALKALINE PHOSPHATASE 113 U/L (45-117)
[2017-09-29 16:37] VITALS: BP 112/72; PULSE 81; RESP 16; O2SAT 94
[2017-09-29 18:38] VITALS: BP 115/81; PULSE 76; RESP 16; O2SAT 96
[2017-09-30] MEDS ORDERED: FAMO20TA2 PO (13:34)
[2017-09-30] MEDS ORDERED: THERM PO (13:34)
[2017-09-30] MEDS ORDERED: PANT40TA3 PO (13:34)
[2017-09-30] MEDS ORDERED: THIA100 PO (13:34)
[2017-09-30] MEDS ORDERED: FOLI1TAB6 PO (13:34)
[2017-09-30] MEDS ORDERED: AZIT500T2 PO (13:38)
== END 2017-09-29 19:10 | disposition left against medical advice (07) ==
LOC: PHED 14:21
DX: F10.129 Alcohol abuse with intoxication, unspecified (principal); R53.1 Weakness; F12.90 Cannabis use, unspecified, uncomplicated; F17.200 Nicotine dependence, unspecified, uncomplicated; Y90.8 Blood alcohol level of 240 mg/100 ml or more
CPT/HCPCS: 80053; 80307; 85025; 96360; 99284; J7030

== ENCOUNTER 2017-09-30 05:39 | Observation (INO) | payer SELFPAY ==
[~2017-09-30] VITALS: Ht 172.7 cm; Wt 67.6 kg
[2017-09-30] MEDS ORDERED: SODIUM CHLOR 0.9% 1000 ML INJ 1,000 ML IV ONE (05:43)
[2017-09-30] MEDS ORDERED: SODIUM CHLORIDE 0.9% FLUSH 10 ML FLUSH IVF PRN (05:45)
[2017-09-30 05:46] VITALS: BP 136/80; PULSE 106; RESP 18; TEMP 98; O2SAT 95
[2017-09-30] MEDS ORDERED: PROCHLORPERAZINE INJ 10 MG/2 ML VIAL IV PUSH ONE (06:00)
--- NOTE | 2017-09-30 06:00 | PD ---
HPI Chief Complaint: GI Complaint Time Seen by Provider: 05:57 Travel History International Travel<30 days: No Contact w/Intl Traveler<30days: No Traveled to known affect area: No History of Present Illness HPI The patient is a 41-year-old male well-known to this emergency department for his multiple visits regarding alcohol abuse, he is a binge drinking alcoholic. He is gone as long as 7 months recently without drinking. His last drink of alcohol was yesterday afternoon. He started vomiting at 10 PM yesterday. He has generalized abdominal discomfort in the form of a dull ache and a 7/10 in pain intensity. He denies vomiting any blood or any blood in the stool. He denies any fever. He states he never had pancreatitis before. He states he feels dehydrated and cannot hold down even water tonight. His alcohol level was 331 yesterday afternoon. PFSH Past Medical History Hx Anticoagulant Therapy: No Autoimmune Disease: No Anxiety: Yes Depression: Yes (DX IN 2009) Heart Rhythm Problems: Yes Cancer: No Cardiovascular Problems: No Chemotherapy: No Chest Pain: Yes (WHEN DETOXING) Cerebrovascular Accident: No Diabetes: No Diminished Hearing: No Endocrine: No Gastrointestinal Disorders: Yes GERD: Yes Genitourinary: No Hiatal Hernia: Yes Hypertension: Yes (DETOXING ONLY) Immune Disorder: No Implanted Vascular Access Dvce: No Musculoskeletal: No Neurologic: Yes Psychiatric: Yes Reproductive: No Respiratory: No Immunizations Current: Yes Radiation Therapy: No Seizures: Yes (WITHDRAWL) Ulcer: Yes (GASTRIC) Past Surgical History Tonsillectomy: Yes Other Surgery: Yes (Hernia as child) Social History Alcohol Use: Yes (1/2 [place] OF [place] YESTERDAY) Tobacco Use: Yes (1/2 PPD) Substance Use: Yes (MARIJUANA OCC) Allergies-Medications (Allergen,Severity, Reaction): Coded Allergies: No Known Allergies (Unverified Adverse Reaction, Unknown, 09/30/17) Reported Meds & Prescriptions Reported Meds & Active Scripts Active No Active Prescriptions or Reported Medications Review of Systems Except as stated in HPI: all other systems reviewed are Neg Physical Exam Narrative GENERAL: The patient smells of beer but is alert, cooperative, pleasant in moderate apparent distress with these generalized abdominal discomfort. His vital signs show heart rate of 106 but are otherwise normal. He does appear dehydrated. He does not appear clinically intoxicated. SKIN: Focused skin assessment warm/dry. HEAD: Atraumatic. Normocephalic. EYES: Pupils equal and round. No scleral icterus. No injection or drainage. ENT: No nasal bleeding or discharge. Mucous membranes pink and moist. NECK: Trachea midline. No JVD. CARDIOVASCULAR: Regular rate and rhythm. No murmur appreciated. RESPIRATORY: No accessory muscle use. Clear to auscultation. Breath sounds equal bilaterally. GASTROINTESTINAL: Abdomen soft, non-tender, nondistended. Hepatic and splenic margins not palpable. MUSCULOSKELETAL: No obvious deformities. No clubbing. No cyanosis. No edema. NEUROLOGICAL: Awake and alert. No obvious cranial nerve deficits. Motor grossly within normal limits. Normal speech. PSYCHIATRIC: Appropriate mood and affect; insight and judgment normal. Data Data Last Documented VS Vital Signs Date Time Temp Pulse Resp B/P (MAP) Pulse Ox O2 Delivery O2 Flow Rate FiO2 09/30/17 06:35 90 18 96 Room Air 09/30/17 05:46 98.0 Orders Orders Complete Blood Count With Diff (09/30/17 05:43) Comprehensive Metabolic Panel (09/30/17 05:43) Urinalysis - C+S If Indicated (09/30/17 05:43) Iv Access Insert/Monitor (09/30/17 05:43) Ecg Monitoring (09/30/17 05:43) Oximetry (09/30/17 05:43) Sodium Chloride 0.9% Flush (Ns Flush) (09/30/17 05:45) Sodium Chlor 0.9% 1000 Ml Inj (Ns 1000 M (09/30/17 05:43) Drug Screen, Random Urine (09/30/17 05:43) Alcohol (Ethanol) (09/30/17 05:43) Lipase (09/30/17 05:43) Prochlorperazine Inj (Compazine Inj) (09/30/17 06:00) Magnesium (Mg) (09/30/17 06:32) Sodium Chlor 0.9% 1000 Ml Inj (Ns 1000 M (09/30/17 06:45) Metoclopramide Inj (Reglan Inj) (09/30/17 06:45) Morphine Inj (Morphine Inj) (09/30/17 06:45) Labs Laboratory Tests Test 09/30/17 06:00 White Blood Count 16.0 TH/MM3 Red Blood Count 4.91 MIL/MM3 Hemoglobin 15.5 GM/DL Hematocrit 44.5 % Mean Corpuscular Volume 90.5 FL Mean Corpuscular Hemoglobin 31.5 PG Mean Corpuscular Hemoglobin Concent 34.8 % Red Cell Distribution Width 13.9 % Platelet Count 247 TH/MM3 Mean Platelet Volume 8.5 FL Neutrophils (%) (Auto) 61.3 % Lymphocytes (%) (Auto) 33.4 % Monocytes (%) (Auto) 3.5 % Eosinophils (%) (Auto) 0.9 % Basophils (%) (Auto) 0.9 % Neutrophils # (Auto) 9.9 TH/MM3 Lymphocytes # (Auto) 5.3 TH/MM3 Monocytes # (Auto) 0.6 TH/MM3 Eosinophils # (Auto) 0.1 TH/MM3 Basophils # (Auto) 0.1 TH/MM3 CBC Comment AUTO DIFF Differential Total Cells Counted 100 Neutrophils % (Manual) 66 % Lymphocytes % 29 % Monocytes % 2 % Eosinophils % 3 % Neutrophils # (Manual) 10.6 TH/MM3 Differential Comment FINAL DIFF MANUAL Platelet Estimate NORMAL Platelet Morphology Comment NORMAL Red Cell Morphology Comment NORMAL Urine Color YELLOW Urine Turbidity CLEAR Urine pH 5.5 Urine Specific [place] GREATER/EQUAL 1.030 Urine Protein TRACE mg/dL Urine Glucose (UA) NEG mg/dL Urine Ketones 15 mg/dL Urine Occult Blood TRACE Urine Nitrite NEG Urine Bilirubin NEG Urine Urobilinogen 0.2 MG/DL Urine Leukocyte Esterase NEG Urine RBC 0-3 /hpf Urine WBC 0-2 /hpf Urine Squamous Epithelial Cells 0-5 /hpf Urine Bacteria NONE /hpf Microscopic Urinalysis Comment CULT NOT INDICATED Blood Urea Nitrogen 14 MG/DL Creatinine 0.70 MG/DL Random Glucose 59 MG/DL Total Protein 6.4 GM/DL Albumin 3.3 GM/DL Calcium Level 8.0 MG/DL Alkaline Phosphatase 128 U/L Aspartate Amino Transf (AST/SGOT) 40 U/L Alanine Aminotransferase (ALT/SGPT) 36 U/L Total Bilirubin 0.7 MG/DL Sodium Level 140 MEQ/L Potassium Level 4.3 MEQ/L Chloride Level 104 MEQ/L Carbon Dioxide Level 20.6 MEQ/L Anion Gap 15 MEQ/L Estimat Glomerular Filtration Rate 125 ML/MIN Lipase 129 U/L Urine Opiates Screen NEG Urine Barbiturates Screen NEG Urine Amphetamines Screen NEG Urine Benzodiazepines Screen NEG Urine Cocaine Screen NEG Urine Cannabinoids Screen POS Ethyl Alcohol Level 203 MG/DL MDM Medical Decision Making Medical Screen Exam Complete: Yes Emergency Medical Condition: Yes Medical Record Reviewed: Yes Interpretation(s) The CBC shows white count of 16,000 but is otherwise unremarkable. The complete metabolic profile shows a glucose of 59, calcium of 8.0, albumin 3.3, alkaline phosphatase of 128 and G OT of 40 and bicarb of 20.6 but is otherwise unremarkable. The alcohol is 203. The lipase is normal. The urinalysis shows specific gravity greater than or equal to 1.030 with 15 ketones but is otherwise normal and cultures not indicated. Differential Diagnosis Alcohol gastritis, alcohol intoxication, alcohol pancreatitis, dehydration, electrolyte disorder, anemia, colitis Narrative Course The patient likely has alcohol gastritis. He is dehydrated. He does not have pancreatitis and states he never did have pancreatitis. He still has a very high alcohol level despite stating he has not drank since yesterday p.m.. The patient is a binge drinker and is unlikely to do well at home, he is already failed at home. He simply continues to drink alcohol as demonstrated by his alcohol levels done yesterday and today. He states he cannot get fluids down and still is nauseated at this time. He does have some abdominal pain for which we have given him some morphine. I discussed the patient with Dr. Bone , the patient will be 23 hour observation to her. Physician Communication Physician Communication I discussed the patient with Dr. Bone, the patient will be 23 hour observation to her. Diagnosis Primary Impression: Alcoholic gastritis Additional Impressions: Alcohol abuse Moderate dehydration Admitting Information Admitting Physician Requests: Observation Scripts No Active Prescriptions or Reported Meds Tyler Morris MD Sep 30, 2017 06:00
[2017-09-30 06:08] LABS: BILIRUBIN, URINE NEG (NEG); BLOOD, URINE TRACE (NEG); GLUCOSE,URINE NEG (NEG); KETONE, URINE 15 mg/dL (NEG); NITRITE,URINE NEG (NEG); PH, URINE 5.5 (5.0-8.5); URINE COLOR YELLOW (YELLW/STRAW); URINE LEUKOCYTE ESTERASE NEG (NEG)
[2017-09-30 06:12] LABS: RBC, URINE 0-3 /hpf (0-3); SQUAMOUS EPITHELIAL CELL URINE 0-5 /hpf (0-5); WBC, URINE 0-2 /hpf (0-5)
[2017-09-30 06:14] LABS: AUTOMATED NEUTROPHIL # 9.9 TH/MM3 (1.8-7.7); BASOPHIL # 0.1 TH/MM3 (0-0.2); BASOPHIL % 0.9 % (0.0-2.0); EOSINOPHIL # 0.1 TH/MM3 (0-0.4); EOSINOPHIL % 0.9 % (0.0-4.0); HEMATOCRIT 44.5 % (39.0-51.0); HEMOGLOBIN 15.5 GM/DL (13.0-17.0); LYMPH % 33.4 % (9.0-44.0); LYMPHOCYTE # 5.3 TH/MM3 (1.0-4.8); MEAN CELL VOLUME 90.5 FL (80.0-100.0); MEAN CORPUSCULAR HEMOGLOBIN 31.5 PG (27.0-34.0); MEAN CORPUSCULAR HGB CONC 34.8 % (32.0-36.0); MEAN PLATELET VOLUME 8.5 FL (7.0-11.0); MONO % 3.5 % (0.0-8.0); MONOCYTE # 0.6 TH/MM3 (0-0.9); NEUT % 61.3 % (16.0-70.0); PLATELET COUNT 247 TH/MM3 (150-450); RED BLOOD COUNT 4.91 MIL/MM3 (4.50-5.90); RED CELL DISTRIBUTION WIDTH 13.9 % (11.6-17.2)
[2017-09-30 06:15] LABS: CHLORIDE 104 MEQ/L (98-107); SODIUM (NA) 140 MEQ/L (136-145)
[2017-09-30 06:19] LABS: ALBUMIN 3.3 GM/DL (3.4-5.0); BICARBONATE 20.6 MEQ/L (21.0-32.0); BLOOD UREA NITROGEN 14 MG/DL (7-18); GLUCOSE,RANDOM 59 MG/DL (74-106)
[2017-09-30 06:21] LABS: ALT (GPT) 36 U/L (12-78); AST (GOT) 40 U/L (15-37)
[2017-09-30 06:22] LABS: GLOMERULAR FILTRATION RATE 125 ML/MIN (>89)
[2017-09-30 06:23] LABS: TOTAL BILIRUBIN ADULT 0.7 MG/DL (0.2-1.0); TOTAL PROTEIN 6.4 GM/DL (6.4-8.2)
[2017-09-30 06:24] LABS: ALKALINE PHOSPHATASE 128 U/L (45-117)
[2017-09-30 06:27] LABS: LYMPHOCYTES 29 % (9-44); MONOCYTES 2 % (0-8); NEUTROPHIL # MANUAL DIFF 10.6 TH/MM3 (1.8-7.7); POLYS (SEG NEUTROPHILS) 66 % (16-70)
[2017-09-30 06:35] VITALS: PULSE 90; RESP 18; O2SAT 96
[2017-09-30] MEDS ORDERED: MORPHINE SULFATE 8 MG/ML INJ IV PUSH ONE (06:45)
[2017-09-30] MEDS ORDERED: SODIUM CHLOR 0.9% 1000 ML INJ 1,000 ML IV SCH ×2 (06:45→06:48)
[2017-09-30] MEDS ORDERED: METOCLOPRAMIDE HCL 10 MG/2 ML VIAL IV PUSH ONE (06:45)
[2017-09-30] MEDS ORDERED: LORazepam 1 MG TAB PO PRN (07:00)
[2017-09-30] MEDS ORDERED: NALOXONE HCL 0.4 MG/ML AMP IV PUSH PRN (07:00)
[2017-09-30] MEDS ORDERED: BISACODYL 10 MG SUPP RECTAL PRN (07:00)
[2017-09-30] MEDS ORDERED: LORazepam 2 MG TAB PO PRN (07:00)
[2017-09-30] MEDS ORDERED: SENNOSIDES 8.6 MG TAB PO PRN (07:00)
[2017-09-30] MEDS ORDERED: FLUMAZENIL 0.5 MG/5 ML VIAL IV PUSH PRN (07:00)
[2017-09-30] MEDS ORDERED: TRIMETHOBENZAMIDE INJ 200 MG/2 ML VIAL IM PRN (07:00)
[2017-09-30] MEDS ORDERED: MAGNESIUM HYDROXIDE SUSP 30 ML CUP PO PRN (07:00)
[2017-09-30] MEDS ORDERED: LACTULOSE SYRUP 20 GM/30 ML CUP PO PRN (07:00)
[2017-09-30] MEDS ORDERED: SODIUM CHLORIDE 0.9% FLUSH 10 ML FLUSH IV FLUSH PRN (07:00)
[2017-09-30] MEDS ORDERED: LORazepam 2 MG/ML VIAL IV PUSH PRN ×4 (07:00)
[2017-09-30] MEDS ORDERED: DEXTROSE 50% IN WATER 50 ML VIAL(D50) IV PUSH PRN (07:00)
[2017-09-30] MEDS ORDERED: GLUCAGON 1 MG/ML VIAL IM PRN (07:00)
[2017-09-30] MEDS ORDERED: PROCHLORPERAZINE INJ 10 MG/2 ML VIAL IV PUSH PRN (07:00)
[2017-09-30 07:05] VITALS: BP 131/75; PULSE 84; RESP 20; O2SAT 98
[2017-09-30 07:07] VITALS: BP 131/75; PULSE 84; RESP 20; O2SAT 98
[2017-09-30 07:10] LABS: MAGNESIUM 1.9 MG/DL (1.5-2.5)
[2017-09-30 09:00] VITALS: BP 127/79; PULSE 69; RESP 20; TEMP 97.2; O2SAT 96
[2017-09-30] MEDS ORDERED: FOLIC ACID 1 MG TAB PO SCH (09:00)
[2017-09-30] MEDS ORDERED: SODIUM CHLORIDE 0.9% FLUSH 10 ML FLUSH IV FLUSH SCH (09:00)
[2017-09-30] MEDS ORDERED: MULTIVITAMINS/MINERALS THERAPEUTIC TAB PO SCH (09:00)
[2017-09-30] MEDS ORDERED: FAMOTIDINE 20 MG TAB PO SCH (09:00)
[2017-09-30] MEDS ORDERED: THIAMINE HCL 100 MG TAB PO SCH (09:00)
--- NOTE | 2017-09-30 09:46 | HHI.HP ---
[facility] Primary Care Physician No Primary Care Physician Admission Diagnosis Alcohol intoxication, dehydration, alcohol abuse Diagnoses: (1) Alcohol abuse (2) Acute alcohol intoxication (3) Alcoholic gastritis (4) Moderate dehydration Chief Complaint: Vomiting Acute alcohol intoxication Dehydration Travel History International Travel<30 Days: No Contact w/Intl Traveler <30 Da: No Traveled to Known Affected Are: No History of Present Illness This is a 41-year-old male patient with known medical history of chronic alcohol abuse with history of seizures, hypertension who presented to the ED with complaints of inability to tolerate p.o. intake 2 days. Patient did present to the ED yesterday, was sent home and roughly around 10 PM last evening he states he began vomiting and unable to keep anything down by mouth. He does admit to drinking a 25 ounce beer yesterday. It should be noted that patient did consume half gallon of vodka 2 days prior. He does admit to associated nausea, abdominal pain, dizziness. Patient states he did quit drinking roughly 7 months and has recently started drinking once again. Patient did present with abdominal discomfort rated a 10 out of 10 on pain scale. Denies any previous pancreatitis. Alcohol level was 331. Upon presentation today patient's abdominal pain is resolved. Patient states he is feeling much improved. Will attempt to feed patient assess tolerance. Patient does not follow with a primary care doctor. Denies any recent illness including fever, chills, cough, shortness breath, diarrhea or dysuria. Review of Systems Constitutional: COMPLAINS OF: Fatigue, Dizziness, DENIES: Fever, Chills Endocrine: DENIES: Polydipsia Eyes: DENIES: Diplopia Respiratory: DENIES: Cough, Sputum production, Shortness of breath Cardiovascular: DENIES: Chest pain, Palpitations Gastrointestinal: COMPLAINS OF: Abdominal pain, Nausea, Vomiting, DENIES: Black stools, Bloody stools, Constipation, Diarrhea Musculoskeletal: DENIES: Joint pain Immunologic/allergic: DENIES: Eczema Neurologic: DENIES: Abnormal gait Psychiatric: COMPLAINS OF: Anxiety Except as stated in HPI: all other systems reviewed are Neg Past Family Social History Past Medical History History of alcohol abuse, history of seizures secondary to alcohol withdrawal Anxiety Depression GERD Hiatal hernia History of gastric ulcer Past Surgical History Tonsillectomy History of hernia repair as a child Reported Medications Active No Active Prescriptions or Reported Medications Allergies: Coded Allergies: No Known Allergies (Unverified Adverse Reaction, Unknown, 09/30/17) Active Ordered Medications Current Medications Medications (Trade) Dose Ordered Sig/Itzel Route Start Time Stop Time Status Last Admin Sodium Chloride 1,000 ml @ 100 mls/hr Q10H IV 09/30/17 06:48 09/30/17 08:21 (NS Flush) 2 ml UNSCH PRN IV FLUSH 09/30/17 07:00 09/30/17 09:01 (NS Flush) 2 ml BID IV FLUSH 09/30/17 09:00 (Narcan Inj) 0.4 mg UNSCH PRN IV PUSH 09/30/17 07:00 (Milk Of Magnesia Liq) 30 ml Q12H PRN PO 09/30/17 07:00 (Senokot) 17.2 mg Q12H PRN PO 09/30/17 07:00 (Dulcolax Supp) 10 mg DAILY PRN RECTAL 09/30/17 07:00 (Lactulose Liq) 30 ml DAILY PRN PO 09/30/17 07:00 (D50w (Vial) Inj) 50 ml UNSCH PRN IV PUSH 09/30/17 07:00 09/30/17 09:35 (Glucagon Inj) 1 mg STAT PRN IM 09/30/17 07:00 (Folate) 1 mg DAILY PO 09/30/17 09:00 10/05/17 08:59 09/30/17 08:32 (Vitamin B1) 100 mg DAILY PO 09/30/17 09:00 09/30/17 08:32 (Theragran M Tab) 1 tab DAILY PO 09/30/17 09:00 10/05/17 08:59 09/30/17 08:32 (Pepcid) 20 mg BID PO 09/30/17 09:00 09/30/17 08:32 (Romazicon Inj) 0.2 mg Q1M PRN IV PUSH 09/30/17 07:00 (Ativan) 1 mg Q4H PRN PO 09/30/17 07:00 (Ativan Inj) 1 mg Q4H PRN IV PUSH 09/30/17 07:00 (Ativan) 2 mg Q2H PRN PO 09/30/17 07:00 (Ativan Inj) 2 mg Q2H PRN IV PUSH 09/30/17 07:00 (Ativan Inj) 2 mg Q1H PRN IV PUSH 09/30/17 07:00 09/30/17 09:01 (Ativan Inj) 2 mg Q15M PRN IV PUSH 09/30/17 07:00 (Compazine Inj) 5 mg Q4H PRN IV PUSH 09/30/17 07:00 (Tigan Inj) 200 mg Q6H PRN IM 09/30/17 07:00 Family History Denies any significant family medical history. Social History Does admit to half pack per day smoking 20 years. Does admit to alcohol abuse , patient states that the amount of alcohol consumed in type differs by the day. Does admit to occasional marijuana use. Physical Exam Vital Signs Vital Signs Date Time Temp Pulse Resp B/P (MAP) Pulse Ox O2 Delivery O2 Flow Rate FiO2 09/30/17 08:52 09/30/17 07:07 84 20 131/75 (93) 98 09/30/17 07:05 84 20 131/75 (93) 98 09/30/17 06:35 90 18 96 Room Air 09/30/17 05:46 98.0 106 18 136/80 (98) 95 Physical Exam GENERAL: Well-developed, well-nourished patient in [facility]. SKIN: Warm and dry. No rash. HEAD: Normocephalic. Atraumatic. EYES: Pupils equal and round. No scleral icterus. No injection or drainage. ENT: No nasal bleeding or discharge. Mucous membranes pink and moist. NECK: Supple. Trachea midline. CARDIOVASCULAR: Regular rate and rhythm. S1, S2 noted. No murmur appreciated. RESPIRATORY: No accessory muscle use. Clear to auscultation. Breath sounds equal bilaterally. GASTROINTESTINAL: Abdomen soft, non-tender, nondistended. Normoactive bowel sounds x4. MUSCULOSKELETAL: No obvious deformities. Extremities without clubbing, cyanosis , or edema. NEUROLOGICAL: Awake and alert. No obvious cranial nerve deficits. Motor grossly within normal limits. 5/5 muscle strength in bilateral upper and lower extremities. Normal speech. PSYCHIATRIC: Appropriate mood and affect; insight and judgment normal. Laboratory Laboratory Tests Test 09/30/17 06:00 09/30/17 07:15 White Blood Count 16.0 Red Blood Count 4.91 Hemoglobin 15.5 Hematocrit 44.5 Mean Corpuscular Volume 90.5 Mean Corpuscular Hemoglobin 31.5 Mean Corpuscular Hemoglobin Concent 34.8 Red Cell Distribution Width 13.9 Platelet Count 247 Mean Platelet Volume 8.5 Neutrophils (%) (Auto) 61.3 Lymphocytes (%) (Auto) 33.4 Monocytes (%) (Auto) 3.5 Eosinophils (%) (Auto) 0.9 Basophils (%) (Auto) 0.9 Neutrophils # (Auto) 9.9 Lymphocytes # (Auto) 5.3 Monocytes # (Auto) 0.6 Eosinophils # (Auto) 0.1 Basophils # (Auto) 0.1 CBC Comment AUTO DIFF Differential Total Cells Counted 100 Neutrophils % (Manual) 66 Lymphocytes % 29 Monocytes % 2 Eosinophils % 3 Neutrophils # (Manual) 10.6 Differential Comment FINAL DIFF MANUAL Platelet Estimate NORMAL Platelet Morphology Comment NORMAL Red Cell Morphology Comment NORMAL Urine Color YELLOW Urine Turbidity CLEAR Urine pH 5.5 Urine Specific [place] GREATER/EQUAL 1.030 Urine Protein TRACE Urine Glucose (UA) NEG Urine Ketones 15 Urine Occult Blood TRACE Urine Nitrite NEG Urine Bilirubin NEG Urine Urobilinogen 0.2 Urine Leukocyte Esterase NEG Urine RBC 0-3 Urine WBC 0-2 Urine Squamous Epithelial Cells 0-5 Urine Bacteria NONE Microscopic Urinalysis Comment CULT NOT INDICATED Blood Urea Nitrogen 14 Creatinine 0.70 Random Glucose 59 87 Total Protein 6.4 Albumin 3.3 Calcium Level 8.0 Magnesium Level 1.9 Alkaline Phosphatase 128 Aspartate Amino Transf (AST/SGOT) 40 Alanine Aminotransferase (ALT/SGPT) 36 Total Bilirubin 0.7 Sodium Level 140 Potassium Level 4.3 Chloride Level 104 Carbon Dioxide Level 20.6 Anion Gap 15 Estimat Glomerular Filtration Rate 125 Lipase 129 Urine Opiates Screen NEG Urine Barbiturates Screen NEG Urine Amphetamines Screen NEG Urine Benzodiazepines Screen NEG Urine Cocaine Screen NEG Urine Cannabinoids Screen POS Ethyl Alcohol Level 203 Result Diagram: 09/30/17 0600 09/30/17 0715 Septic Shock Reassessment Septic shock perfusion: reassessment completed Caprini VTE Risk Assessment Caprini VTE Risk Assessment: No/Low Risk (score <= 1) Caprini Risk Assessment Model Point Value = 1 Point Value = 2 Point Value = 3 Point Value = 5 Age 41-60 Minor surgery BMI > 25 kg/m2 Swollen legs Varicose veins or History of unexplained or recurrent spontaneous Oral contraceptives or hormone replacement Sepsis (< 1 month) Serious lung disease, including pneumonia (< 1 month) Abnormal pulmonary function Acute myocardial infarction Congestive heart failure (< 1 month) History of inflammatory bowel disease Medical patient at bed rest Age 61-74 Arthroscopic surgery Major open surgery (> 45 min) Laparoscopic surgery (> 45 min) Malignancy Confined to bed (> 72 hours) Immobilizing plaster cast Central venous access Age >= 75 History of VTE Family history of VTE Factor V Leiden Prothrombin [id number] Lupus anticoagulant Anticardiolipin antibodies Elevated serum homocysteine Heparin-induced thrombocytopenia Other congenital or acquired thrombophilia Stroke (< 1 month) Elective arthroplasty Hip, pelvis, or leg fracture Acute spinal cord injury (< 1 month) Prophylaxis Regimen Total Risk Factor Score Risk Level Prophylaxis Regimen 0-1 Low Early ambulation 2 Moderate Order ONE of the following: *Sequential Compression Device (SCD) *Heparin 5000 units SQ BID 3-4 Higher Order ONE of the following medications: *Heparin 5000 units SQ TID *Enoxaparin/Lovenox 40 mg SQ daily (WT < 150 kg, CrCl > 30 mL/min) *Enoxaparin/Lovenox 30 mg SQ daily (WT < 150 kg, CrCl > 10-29 mL/min) *Enoxaparin/Lovenox 30 mg SQ BID (WT < 150 kg, CrCl > 30 mL/min) AND/OR *Sequential Compression Device (SCD) 5 or more Highest Order ONE of the following medications: *Heparin 5000 units SQ TID (Preferred with Epidurals) *Enoxaparin/Lovenox 40 mg SQ daily (WT < 150 kg, CrCl > 30 mL/min) *Enoxaparin/Lovenox 30 mg SQ daily (WT < 150 kg, CrCl > 10-29 mL/min) *Enoxaparin/Lovenox 30 mg SQ BID (WT < 150 kg, CrCl > 30 mL/min) AND *Sequential Compression Device (SCD) Assessment and Plan Problem List: (1) Acute alcohol intoxication ICD Code: F10.129 - Alcohol abuse with intoxication, unspecified Status: Acute (2) Alcohol abuse ICD Code: F10.10 - Alcohol abuse, uncomplicated Status: Chronic (3) Alcoholic gastritis ICD Code: K29.20 - Alcoholic gastritis without bleeding Status: Acute (4) Moderate dehydration ICD Code: E86.0 - Dehydration Status: Acute Assessment and Plan This is a 41-year-old male patient with known medical history of chronic alcohol abuse with history of seizures, hypertension who presented to the ED with complaints of inability to tolerate p.o. intake 2 days. Acute alcohol intoxication Alcohol abuse Nausea, vomiting, abdominal pain Dehydration suspect secondary to above - Ethyl alcohol level 203 on presentation. Lipase 129. - Symptoms have improved. Patient given 2 L NS bolus in ED. Will continue IV fluids. - Abdominal pain improved, status post morphine in the ED. UA negative. No tenderness to palpation. Denies any bowel changes. - Monitor for alcohol withdrawal, placed on CIWA protocol. Seizure precaution. - Compazine available for nausea or vomiting. - Will attempt p.o. intake, advance diet as tolerated. - Encouraged alcohol cessation. CM consulted for assistance. Leukocytosis: No bandemia. Unknown source. Ua negative. Afebrile. Will obtain CXR, patient does report congestion and cough over the last couple weeks. DVT Prophylaxis: SCDs. Discharge patient to home. Condition on discharge: Improved. Regular Diet as tolerated. Ad Renetta activity. Rx written: See DC instructions. Follow-up with primary care physician. CXR reviewed and negative. Patient is tolerating PO intake. No further abdominal pain, n/v. Has improved. Will DC home. Follow up PCP. AVOID ETOH completely. Will provide z-monse for URI. Patient is stable at this time. Joanna Pena Sep 30, 2017 09:46
[2017-09-30 11:50] VITALS: BP 138/85; PULSE 86; RESP 20; TEMP 98.6; O2SAT 96
[2017-09-30] MEDS ORDERED: PANTOPRAZOLE SOD 40 MG DELAYED RELEASE TAB PO SCH (12:15)
--- NOTE | 2017-09-30 13:05 | RADRPT ---
EXAM DATE: 09/30/2017 12:57 PM EDT AGE/SEX: 41 years / Male INDICATIONS: Congestion CLINICAL DATA: This is the patient's initial encounter. Patient reports that signs and symptoms have been present for 2 days and indicates a pain score of 3/10. MEDICAL/SURGICAL HISTORY: Gastroesophageal reflux disease. Hiatal hernia. Alcohol abuse. Seizu res. Smoker None. COMPARISON: [facility] [place], CHEST SINGLE AP, 12/24/2015. . FINDINGS: A single AP view of the chest demonstrates the lungs to be symmetrically aerated without evidence of mass, infiltrate or effusion. The cardiomediastinal contours are unremarkable. Osseous structures a re intact. CONCLUSION: Negative examination. Electronically signed by: Trevor Bueno MD 09/30/2017 1:04 PM EDT
[2017-09-30] MEDS ORDERED: THERM PO (13:34)
[2017-09-30] MEDS ORDERED: FOLI1TAB6 PO (13:34)
[2017-09-30] MEDS ORDERED: THIA100 PO (13:34)
[2017-09-30] MEDS ORDERED: FAMO20TA2 PO (13:34)
[2017-09-30] MEDS ORDERED: PANT40TA3 PO (13:34)
--- NOTE | 2017-09-30 13:35 | HHI.DCPOC ---
Discharge Care Plan Diagnosis: (1) Alcohol withdrawal (2) Alcohol withdrawal seizure (3) Tobacco abuse (4) Alcohol dependence (5) Alcohol abuse (6) Moderate dehydration Goals to Promote Your Health * To prevent worsening of your condition and complications * To maintain your health at the optimal level Directions to Meet Your Goals Take your medications as prescribed Follow your dietary instruction Follow activity as directed Keep your appointments as scheduled Take your immunizations and boosters as scheduled If your symptoms worsen call your PCP, if no PCP go to Urgent Care Center or Emergency Room Smoking is Dangerous to Your Health. Avoid second hand smoke Call the 24-hour hour crisis hotline for domestic abuse at Joanna Pena Sep 30, 2017 13:35
[2017-09-30] MEDS ORDERED: AZIT500T2 PO (13:38)
== END 2017-09-30 15:19 | disposition home or self-care (01) ==
LOC: PHED 05:39 → PHEDA 06:52 → PH3A 09:16
PROVIDERS: ADMIT Hospitalist; ATTEND Hospitalist
DX: K29.20 Alcoholic gastritis without bleeding (principal); F10.129 Alcohol abuse with intoxication, unspecified; E86.0 Dehydration; F41.9 Anxiety disorder, unspecified; F32.9 Major depressive disorder, single episode, unspecified; K21.9 Gastro-esophageal reflux disease without esophagitis; K44.9 Diaphragmatic hernia without obstruction or gangrene; I10 Essential (primary) hypertension; R56.9 Unspecified convulsions; F17.210 Nicotine dependence, cigarettes, uncomplicated; F12.10 Cannabis abuse, uncomplicated; Y90.7 Blood alcohol level of 200-239 mg/100 ml; R11.2 Nausea with vomiting, unspecified; Z87.11 Personal history of peptic ulcer disease; D72.829 Elevated white blood cell count, unspecified; R05 Cough
CPT/HCPCS: 71045; 80053; 80307; 81001; 82947; 82948; 83690; 83735; 85007; 85027; 96361; 96374; 96375; 99285; G0378; J0780; J2060; J2270; J2765; J7030